=== PATIENT | male | born 1975 | race Caucasian/White ===

== ENCOUNTER 2017-11-30 11:48 | Emergency (ER) | payer BC ==
--- NOTE | 2017-11-30 12:19 | EDM.PDOC ---
ED HPI GENERAL MEDICAL PROBLEM - General Chief Complaint: Abdominal Pain Stated Complaint: LEFT SIDE ABD PAIN Time Seen by Provider: 11/30/17 12:00 Source of Information: Reports: Patient History Limitations: Reports: No Limitations - History of Present Illness INITIAL COMMENTS - FREE TEXT/NARRATIVE: History of present illness: [42-year-old male presenting with complaints of left inguinal pain. Patient indicates that he had been lifting heavy items at his work when he felt a sharp tearing pain originating in his left groin region and radiating up his abdomen and now he indicates he feels like the pain has come all the way up into his left shoulder.] Review of systems: As per history of present illness and below otherwise all systems reviewed and negative. Past medical history: As per history of present illness and as reviewed below otherwise noncontributory. Surgical history: As per history of present illness and as reviewed below otherwise noncontributory. Social history: No reported history of drug or alcohol abuse. Family history: As per history of present illness and as reviewed below otherwise noncontributory. Physical exam: HEENT: Atraumatic, normocephalic, pupils reactive, negative for conjunctival pallor or scleral icterus, mucous membranes moist, throat clear, neck supple, nontender, trachea midline. Lungs: Clear to auscultation, breath sounds equal bilaterally, chest nontender. Heart: S1S2, regular, negative for clicks, rubs, or JVD. Abdomen: Soft, nondistended, nontender. Negative for masses or hepatosplenomegaly. Negative for costovertebral tenderness. Pelvis: Stable nontender. Genitourinary: Diffuse tenderness at left inguinal region without signs of bulging, entrapment or incarceration. Rectal: Deferred. Extremities: Atraumatic, negative for cords or calf pain. Neurovascular unremarkable. Neuro: Awake, alert, oriented. Cranial nerves II through XII unremarkable. Cerebellum unremarkable. Motor and sensory unremarkable throughout. Exam nonfocal. Global assessment is benign save subjective complaint as noted in history of present illness. Of note inguinal ring on assessment was not appreciated nor was there any sign of bulging and or tenderness over the inguinal region. CT negative for any signs of hernia Diagnostics: [CT of abdomen without contrast] Therapeutics: [IV fluid] [IMPRESSION: 1. Nonobstructive calculi in both intrarenal collecting systems. 2. There is no obstructive urolith, hydronephrosis, or perinephric fluid collection. 3. Low-density renal lesions, most likely benign cysts. 4. Low-density hepatic lesions. The largest is seen in segment IVb of the liver. This is most likely related to focal fat deposition. The right lobe of the liver is of reduced attenuation when compared with the left lobe. This is also likely fat deposition. 5. MRI of the abdomen is suggested on a nonemergent basis to further assess. Plan: [Follow-up outpatient for MRI as recommended per CT] Definitive disposition and diagnosis as appropriate pending reevaluation and review of above. Left Lower Abdomen Pain Score (Numeric/FACES): 9 - Related Data Allergies Allergy/AdvReac Type Severity Reaction Status Date / Time No Known Allergies Allergy Verified 11/30/17 12:02 Home Meds: Home Meds . [No Known Home Meds] 12/07/15 [History] Past Medical History - Past Health History Medical/Surgical History: Denies Medical/Surgical History Gastrointestinal History: Reports: Other (See Below) Other Gastrointestinal History: "has gotten food stuck in his throat before" - Infectious Disease History Infectious Disease History: Reports: Chicken Pox - Past Surgical History Neurological Surgical History: Reports: Other (See Below) Social & Family History - Family History Family Medical History: Noncontributory - Tobacco Use Smoking Status *Q: Never Smoker Second Hand Smoke Exposure: No - Caffeine Use Caffeine Use: Reports: Soda - Recreational Drug Use Recreational Drug Use: No ED ROS GENERAL - Review of Systems Review Of Systems: See Below (History of present illness) ED EXAM, GENERAL - Physical Exam Exam: See Below (See history of present illness) Course - Vital Signs Last Recorded V/S: Last Vital Signs Temp 36.4 C 11/30/17 11:57 Pulse 74 11/30/17 11:57 Resp 18 11/30/17 11:57 BP 150/98 H 11/30/17 11:57 Pulse Ox 100 11/30/17 11:57 - Orders/Labs/Meds Orders: Active Orders 24 hr Category Date Time Status Abdomen Pelvis wo Cont [CT] Stat Exams 11/30/17 12:05 Taken Departure - Departure Time of Disposition: 13:39 Disposition: Home, Self-Care 01 Condition: Good Clinical Impression: Muscle strain - Discharge Information Referrals: PCP,None [Primary Care Provider] - Forms: ED Department Discharge Additional Instructions: The following information is given to patients seen in the emergency department who are being discharged to home. This information is to outline your options for follow-up care. We provide all patients seen in our emergency department with a follow-up referral. The need for follow-up, as well as the timing and circumstances, are variable depending upon the specifics of your emergency department visit. If you don't have a primary care physician on staff, we will provide you with a referral. We always advise you to contact your personal physician following an emergency department visit to inform them of the circumstance of the visit and for follow-up with them and/or the need for any referrals to a consulting specialist. The emergency department will also refer you to a specialist when appropriate. This referral assures that you have the opportunity for follow-up care with a specialist. All of these measure are taken in an effort to provide you with optimal care, which includes your follow-up. Under all circumstances we always encourage you to contact your private physician who remains a resource for coordinating your care. When calling for follow-up care, please make the office aware that this follow-up is from your recent emergency room visit. If for any reason you are refused follow-up, please contact the [facility] Emergency Department at and asked to speak to the emergency department charge nurse. Take [id number] pain medicine as recommended Follow-up with primary care for further diagnostic testing of incidental findings as discussed Return to ED as needed as discussed - My Orders Last 24 Hours: My Active Orders 11/30/17 12:05 Abdomen Pelvis wo Cont [CT] Stat - Assessment/Plan Last 24 Hours: My Active Orders 11/30/17 12:05 Abdomen Pelvis wo Cont [CT] Stat
[2017-11-30 14:16] VITALS: BP 121/84
--- NOTE | 2017-11-30 14:27 | CT ---
EXAM DATE: 11/30/17 PATIENT'S AGE: 42 Patient: JESUS GARCIA Facility: [place], [place] Site . Site : [id number] Study: CT Abdomen/Pelvis [id number]/[id number] 12:24:29 PM Ordering Physician: Doctor Beltran Final Report: INDICATION: LLQ pain HISTORY: Left lower quadrant abdominal pain. COMPARISON: None. TECHNIQUE: CT of the abdomen and pelvis. No intravenous contrast. Coronal/sagittal reconstruction images. FINDINGS: Lung bases: There is no pleural or pericardial effusion. The heart size is normal. The lung bases demonstrate dependent atelectasis. There is no acute airspace disease. There is no basilar pneumothorax. Abdomen/pelvis: There is a low-density lesion in segment 4 of the liver, which may represent focal fat deposition. This measures 2 cm on image 36, series 201. Hepatic morphology is normal. Subtle, 7-8 mm lesion in segment 2 of the liver on image 30. No dilation of intrahepatic biliary radicals. No perihepatic ascites. Spleen size is normal. No adrenal mass. Bilateral renal calculi. The largest calculus is seen in the left intrarenal collecting system, measuring 6 mm on image 64, and 1,119 Hounsfield units. 3-4 mm stone in the right kidney on image 65. Benign right renal cyst. No perinephric fluid collection. Mild perinephric stranding. There is no obstructive urolith. Prostate and seminal vesicles are within normal limits. There is no wall thickening within the small bowel or colon. There is no perienteric edema. No transition point to indicate a mechanical small bowel or colonic obstruction. No abdominal aortic aneurysm. Nonenlarged retroperitoneal lymph nodes. No abdominal or pelvic lymphadenopathy is seen by size criteria. The bone windows demonstrate no suspicious lytic or blastic bone lesions in the included axial skeleton. On sagittal reconstruction images, there is disc height loss and osteophytic spurring, seen primarily at L5-S1. IMPRESSION: 1. Nonobstructive calculi in both intrarenal collecting systems. 2. There is no obstructive urolith, hydronephrosis, or perinephric fluid collection. 3. Low-density renal lesions, most likely benign cysts. 4. Low-density hepatic lesions. The largest is seen in segment IVb of the liver. This is most likely related to focal fat deposition. The right lobe of the liver is of reduced attenuation when compared with the left lobe. This is also likely fat deposition. 5. MRI of the abdomen is suggested on a nonemergent basis to further assess. Dictated by Jamarcus Louis MD @ 11/30/2017 1:08:59 PM Dictated by: Jamarcus Louis MD @ 11/30/2017 13:09:07 (Electronic Signature) Report Signed by Proxy. [facility]ori
== END 2017-11-30 13:53 | disposition home or self-care (01) ==
LOC: MW.ED 11:48
DX: S39.011A Strain of muscle, fascia and tendon of abdomen, initial encounter (principal); N20.0 Calculus of kidney; X50.0XXA Overexertion from strenuous movement or load, initial encounter; Y99.0 Civilian activity done for income or pay
CPT/HCPCS: 74176; 74176-26; 99283; 99284-25

== ENCOUNTER 2022-10-20 19:49 | Emergency (ER) | payer BC ==
[2022-10-20] MEDS ORDERED: Sodium Chloride 0.9% 1,000 ML IV ONE (20:14)
[2022-10-20] MEDS ORDERED: Sodium Chloride 0.9% 10 ML Syringe FLUSH PRN (20:14)
[2022-10-20] MEDS ORDERED: diphenhydrAMINE 50 MG/ML SDV IVPUSH ONE (20:14)
[2022-10-20] MEDS ORDERED: Metoclopramide 10 MG/2 ML SDV IVPUSH ONE (20:14)
[2022-10-20] MEDS ORDERED: Sodium Chloride 0.9% 2.5 ML Syringe FLUSH PRN (20:14)
[2022-10-20 20:34] LABS: CARBON DIOXIDE,CO2 24.3 mmol/L (21.0-32.0); POTASSIUM,K 3.2 mmol/L (3.5-5.1)
[2022-10-20] MEDS ORDERED: Magnesium Sulfate/Water 2 GM in Premix Bag 1 BAG IV ONE (20:59)
[2022-10-20] MEDS ORDERED: Dexamethasone 10 MG/ML SDV IM ONE (22:29)
[2022-10-20 23:18] VITALS: BP 150/71; PULSE 77
[2022-10-20] MEDS ORDERED: Acetaminophen 325 MG Tab PO ONE (23:32)
[2022-10-20] MEDS ORDERED: Prochlorperazine 10 MG in Sodium Chloride 0.9% 50 ML IV ONE (23:32)
[2022-10-20] MEDS ORDERED: Lactated Ringers 1,000 ML IV SCH (23:45)
[2022-10-20] MEDS ORDERED: Acetaminophen 500 MG Tab PO ONE (23:48)
[2022-10-20] MEDS ORDERED: Prochlorperazine 10 MG/2 ML SDV ONE (23:49)
[2022-10-21 00:06] LABS: CORONAVIRUS COVID-19 NAA NEGATIVE (NEGATIVE); INFLUENZA A NAA NEGATIVE (NEGATIVE); INFLUENZA B NAA NEGATIVE (NEGATIVE); RESPIRATORY SYNCYTIAL VIR NAA NEGATIVE (NEGATIVE)
== END 2022-10-21 01:22 | disposition home or self-care (01) ==
LOC: MW.ED 19:49
DX: T85.09XA Other mechanical complication of ventricular intracranial (communicating) shunt, initial encounter (principal); G43.909 Migraine, unspecified, not intractable, without status migrainosus; Z20.822 Contact with and (suspected) exposure to COVID-19
CPT/HCPCS: 0241U; 36415; 70250; 70360; 70450; 71046; 74019; 80053; 83735; 85025; 93005; 96361; 96365; 96366; 96367; 96372; 96375; 99285; A9270; J0780; J1100; J1200; J2765; J3475; J3490; J7030; J7120